=== PATIENT | female | born 1980 | race Caucasian/White ===

== ENCOUNTER 2016-11-04 21:29 | Emergency (ER) | payer MEDICAID, OTHER ==
[~2016-11-04] VITALS: Ht 165.1 cm; Wt 86.4 kg
[2016-11-04 21:54] VITALS: BP 117/70; PULSE 81; RESP 16; O2SAT 98
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
[2016-11-04 23:27] LABS: APPEARANCE,URINE CLOUDY (CLEAR,HAZY); COLOR,URINE YELLOW (YELLOW); OCCULT BLOOD,URINE NEGATIVE (NEGATIVE); PH,URINE 5.5 (5.0-8.0); UROBILINOGEN,URINE NORMAL (NORMAL)
[2016-11-04] MEDS ORDERED: Phenazopyridine 97.5 mg Tablet PO ONE (23:45)
[2016-11-04] MEDS ORDERED: Nitrofurantoin Monohyd-Macrocryst 100 mg Capsule PO ONE (23:45)
[2016-11-05] MEDS ORDERED: NITR100 PO (00:12)
[2016-11-05] MEDS ORDERED: POLY17PO6 PO (01:04)
[2016-11-05] MEDS ORDERED: PRAZ1CAP2 PO (01:04)
[2016-11-05 01:46] VITALS: BP 121/76; PULSE 81; RESP 15; O2SAT 98
--- NOTE | 2016-11-05 09:39 | DRSVH ---
PROCEDURE: CT KUB ([id number]) INDICATIONS: hematuria, L flank pain TECHNIQUE: Noncontrast 5 mm thick sections acquired from the diaphragms to the symphysis. 5 mm thick coronal an d sagittal reformats were then performed. For radiation dose reduction, the following was used: aut omated exposure control, adjustment of mA and/or kV according to patient size. COMPARISON: None. FINDINGS: Image quality: There is motion artifact. Lung bases: Lung bases are clear. Heart size is normal. Urinary system: Both kidneys are normal in size. No kidney stones. No hydronephrosis or perinephri c fat stranding. Both ureters appear non-dilated throughout their expected courses. Bladder wall th ickness is normal; no calcified bladder stones. Other solid organs: Liver and spleen are normal in size. Gallbladder contracted. Pancreas is sterling l in contours. No adrenal nodules. Peritoneum and bowel: Unenhanced bowel loops demonstrate normal wall thickness and caliber. No free fluid or air. Large amount of stool. No suspicious findings to suggest acute appendicitis however t he appendix is not well-seen. Nodes and vessels: No retroperitoneal or mesenteric adenopathy by size criteria. Aorta and inferior vena cava are normal in caliber. Abdominal wall: No ventral hernias. Pelvis: No free pelvic fluid. No inguinal hernias or adenopathy. Bones: No suspicious bony lesions. No vertebral body compression fractures. IMPRESSION: No evidence of urolithiasis or urinary obstruction. Large amount of stool suggesting constipation, of unspecified etiology. Please correlate clinically. Dictated by: Dann Hyde M.D. on 11/05/2016 at 9:33 Approved by: Dann Hyde M.D. on 11/05/2016 at 9:37
== END 2016-11-05 01:47 | disposition home or self-care (01) ==
LOC: SED 21:29
DX: N30.01 Acute cystitis with hematuria (principal); K59.00 Constipation, unspecified; F51.4 Sleep terrors [night terrors]; K08.89 Other specified disorders of teeth and supporting structures; B96.20 Unspecified Escherichia coli [E. coli] as the cause of diseases classified elsewhere; I10 Essential (primary) hypertension; F17.200 Nicotine dependence, unspecified, uncomplicated; Z86.19 Personal history of other infectious and parasitic diseases; Z87.440 Personal history of urinary (tract) infections; Z87.828 Personal history of other (healed) physical injury and trauma; Z88.0 Allergy status to penicillin